=== PATIENT | female | born 1995 | race Two or more races ===

== ENCOUNTER 2020-09-03 07:13 | Inpatient (IN) | payer OTHER ==
[~2020-09-03] VITALS: Ht 149.9 cm; Wt 41.4 kg
[2020-09-03] MEDS ORDERED: SODIUM CHLORIDE 0.9% 1,000 ML IV ONE ×2 (07:45→13:15)
[2020-09-03] MEDS ORDERED: ONDANSETRON HCL 4 MG/2 ML VIAL IVP ONE (07:45)
[2020-09-03 09:00] LABS: BASOPHILS % (AUTO) 0.5 % (0.0-2.0); EOSINOPHILS % (AUTO) 0.1 % (1.0-6.0); HEMOGLOBIN 12.7 g/dL (12.0-16.0); LYMPHOCYTES # (AUTO) 1.5 K/uL (1.0-4.8); LYMPHOCYTES % (AUTO) 21.6 % (22.0-44.0); MEAN CORPUSCULAR HGB CONC 33.4 G/dL (31.0-37.0); MEAN CORPUSCULAR VOLUME 87 fL (80-100); MONOCYTES # (AUTO) 0.3 K/uL (0.1-1.0); MONOCYTES % (AUTO) 4.2 % (2.0-9.0); NEUTROPHILS # (AUTO) 5.2 K/uL (1.8-7.7); NEUTROPHILS % (AUTO) 73.6 % (40.0-70.0); PLATELET COUNT (AUTO) 290 K/uL (150-450); RED BLOOD CELL COUNT(AUTO) 4.38 MIL/uL (4.00-5.20); RED CELL DISTRIBUTION WIDTH 14.3 % (11.5-14.5)
[2020-09-03 09:10] LABS: CALCIUM, TOTAL 9.1 mg/dL (8.8-10.5); CARBON DIOXIDE 25 mmol/L (22-29); CHLORIDE 101 mmol/L (98-107); CREATININE 0.49 mg/dL (0.60-1.30); GLOMERULAR FILTR. RATE CALC > 60 mL/min (>60); GLUCOSE,RANDOM 106 mg/dL (70-110); UREA NITROGEN, BLOOD 7 mg/dL (7-18)
[2020-09-03 09:22] LABS: ALANINE AMINOTRANSFERASE 14 U/L (12-78); ALBUMIN 3.9 g/dL (3.4-5.0); ALKALINE PHOSPHATASE 67 U/L (46-116); ANION GAP 12 mmol/L (8-16); ASPARTATE AMINOTRANSFERASE 12 U/L (15-37); BILIRUBIN,TOTAL 0.3 mg/dL (0.1-1.0); HCG,QUANTITATIVE < 1 mIU/mL (0-6); LIPASE 49 U/L (73-393); POTASSIUM 3.7 mmol/L (3.5-5.1); SODIUM SERUM 138 mmol/L (136-145); TOTAL PROTEIN, SERUM 8.9 g/dL (6.4-8.2)
[2020-09-03] MEDS ORDERED: IOHEXOL 350 MG/ML 100 ML VIAL ONE (09:43)
[2020-09-03] MEDS ORDERED: SODIUM CHLORIDE 0.9% 100 ML ONE (09:44)
[2020-09-03 10:36] LABS: COVID AG,FIA SOURCE NASOPHARYNGEAL
[2020-09-03 10:43] LABS: APPEARANCE,URINE CLOUDY (CLEAR); GLUCOSE, URINE (UA) NEGATIVE (NEGATIVE); KETONES,URINE >=80 mg/dL (NEGATIVE); LEUKOCYTE ESTERASE ,URINE TRACE (NEGATIVE); NITRATE,URINE NEGATIVE (NEGATIVE); OCCULT BLOOD,URINE LARGE (NEGATIVE); PH,URINE 6.5 (5.0-8.0); PROTEIN,URINE TRACE (NEGATIVE)
[2020-09-03 10:48] LABS: AMPHET/METH SCREEN,URINE NEGATIVE (NEGATIVE); BARBITURATE SCREEN, URINE NEGATIVE (NEGATIVE); BENZODIAZEPINES SCREEN,URINE NEGATIVE (NEGATIVE); CANNABINOID SCREEN,URINE NEGATIVE (NEGATIVE); COCAINE SCREEN,URINE NEGATIVE (NEGATIVE); METHADONE SCREEN, URINE NEGATIVE (NEGATIVE); OPIATE SCREEN,URINE NEGATIVE (NEGATIVE)
[2020-09-03 10:51] LABS: PHENCYCLIDINE SCREEN,URINE NEGATIVE (NEGATIVE)
[2020-09-03 10:52] LABS: BILIRUBIN,URINE PRELIM. POSITIVE (NEGATIVE)
[2020-09-03 11:17] LABS: BACTERIA,URINE Few /HPF (None Seen); SQUAMOUS EPITHELIAL CELL,UR Few /LPF (None Seen); WBC,URINE 0-2 /HPF (0-5)
[2020-09-03] MEDS ORDERED: METOCLOPRAMIDE HCL 5 MG/ML 2 ML VIAL IVP ONE (11:30)
[2020-09-03] MEDS ORDERED: DiphenhydrAMINE HCL 50 MG/ML VIAL IVP ONE (11:30)
[2020-09-03] MEDS ORDERED: ONDANSETRON HCL 4 MG/2 ML VIAL IVP PRN (16:00)
[2020-09-03] MEDS ORDERED: BISACODYL 10 MG RECTAL RECTAL SUPPOSITORY PR PRN (16:00)
[2020-09-03] MEDS ORDERED: ALBUTEROL SULFATE 2.5 MG/0.5 ML NEB SOLUTION NEB PRN (16:00)
[2020-09-03] MEDS ORDERED: IPRATROPIUM BROMIDE 0.5 MG/2.5 ML NEB SOLUTION NEB PRN (16:00)
[2020-09-03] MEDS ORDERED: ZOLPIDEM TARTRATE 5 MG TABLET PO PRN (16:00)
[2020-09-03] MEDS ORDERED: HEPARIN SODIUM,PORCINE 5,000 UNITS/ML VIAL SQ SCH (16:00)
[2020-09-03] MEDS ORDERED: HYDROCODONE/ACETAMINOPHEN 5-325 MG TABLET PO PRN (16:00)
[2020-09-03 16:08] VITALS: BP 102/56
[2020-09-03] MEDS: ACETAMINOPHEN 325 MG TABLET PO PRN (16:34)
[2020-09-03 20:44] VITALS: BP 99/52
[2020-09-04] MEDS: ACETAMINOPHEN 325 MG TABLET PO PRN ×3 (02:08→13:24)
[2020-09-04 04:45] VITALS: BP 93/55
[2020-09-04 06:39] LABS: BASOPHILS % (AUTO) 0.9 % (0.0-2.0); EOSINOPHILS % (AUTO) 1.6 % (1.0-6.0); HEMATOCRIT 34.6 % (36-46); HEMOGLOBIN 11.5 g/dL (12.0-16.0); LYMPHOCYTES # (AUTO) 2.6 K/uL (1.0-4.8); LYMPHOCYTES % (AUTO) 60.5 % (22.0-44.0); MEAN CORPUSCULAR HGB CONC 33.1 G/dL (31.0-37.0); MEAN CORPUSCULAR VOLUME 88 fL (80-100); MONOCYTES # (AUTO) 0.3 K/uL (0.1-1.0); MONOCYTES % (AUTO) 6.5 % (2.0-9.0); NEUTROPHILS # (AUTO) 1.3 K/uL (1.8-7.7); NEUTROPHILS % (AUTO) 30.5 % (40.0-70.0); PLATELET COUNT (AUTO) 255 K/uL (150-450); RED BLOOD CELL COUNT(AUTO) 3.96 MIL/uL (4.00-5.20); RED CELL DISTRIBUTION WIDTH 14.4 % (11.5-14.5)
[2020-09-04 06:58] LABS: ALANINE AMINOTRANSFERASE 12 U/L (12-78); ALBUMIN 3.2 g/dL (3.4-5.0); ALKALINE PHOSPHATASE 54 U/L (46-116); ANION GAP 7 mmol/L (8-16); ASPARTATE AMINOTRANSFERASE 12 U/L (15-37); BILIRUBIN,TOTAL 0.3 mg/dL (0.1-1.0); CALCIUM, TOTAL 8.6 mg/dL (8.8-10.5); CARBON DIOXIDE 27 mmol/L (22-29); CHLORIDE 103 mmol/L (98-107); CREATININE 0.41 mg/dL (0.60-1.30); FREE T4 (FREE THYROXINE) 1.17 ng/dL (0.76-1.46); GLOMERULAR FILTR. RATE CALC > 60 mL/min (>60); GLUCOSE,RANDOM 88 mg/dL (70-110); POTASSIUM 3.8 mmol/L (3.5-5.1); SODIUM SERUM 137 mmol/L (136-145); THYROID STIMULATING HORMONE 0.84 uIU/mL (0.36-3.74); TOTAL PROTEIN, SERUM 7.6 g/dL (6.4-8.2); UREA NITROGEN, BLOOD 4 mg/dL (7-18)
[2020-09-04 08:17] VITALS: BP 102/61
[2020-09-04] MEDS ORDERED: PredniSONE 20 MG TABLET PO ONE (15:30)
[2020-09-04] MEDS: KETOROLAC TROMETHAMINE 15 MG/ML VIAL IVP PRN ×2 (16:56→22:20)
[2020-09-04 20:20] VITALS: BP 104/64
[2020-09-05 03:21] VITALS: BP 105/58
[2020-09-05] MEDS: KETOROLAC TROMETHAMINE 15 MG/ML VIAL IVP PRN (03:25)
[2020-09-05] MEDS ORDERED: PredniSONE 20 MG TABLET PO SCH (09:00)
[2020-09-05] MEDS ORDERED: PRED10 PO (12:50)
[2020-09-05] MEDS ORDERED: IBUP-2071 PO (13:01)
== END 2020-09-05 15:49 | DRG 103 ==
LOC: EDBD 07:17 → EMS 07:17 → 6S 14:57
PROVIDERS: ADMIT Hospitalist; ATTEND Hospitalist
DX: R51.9 Headache, unspecified (principal); R10.9 Unspecified abdominal pain; R11.2 Nausea with vomiting, unspecified; E86.0 Dehydration; Z20.822 Contact with and (suspected) exposure to COVID-19
CPT/HCPCS: 70450; 71045; 74177; 80053; 81001; 83690; 84439; 84443; 84702; 85025; 99285; A9575; J1200; J1885; J2405; J2765; J7030; J7050; 36415-L1; 36415-TC